=== PATIENT | male | born 1960 | race African-American/Black ===

== ENCOUNTER 2016-11-17 11:49 | Emergency (ER) | payer OTHER ==
[~2016-11-17] VITALS: Ht 175.3 cm; Wt 102.1 kg
[2016-11-17 12:01] VITALS: BP 93/53
== END 2016-11-17 12:05 | disposition left against medical advice (07) ==
LOC: ER 11:54
DX: R42 Dizziness and giddiness (principal); Z53.21 Procedure and treatment not carried out due to patient leaving prior to being seen by health care provider
CPT/HCPCS: 93005